=== PATIENT | male | born 1945 | race African-American/Black ===

== ENCOUNTER 2020-03-31 16:57 | Observation (INO) | payer MEDICARE, MEDICAID ==
[2020-03-31] VITALS (8 sets, daily range): BP systolic 120–143; BP diastolic 63–79
[~2020-03-31] VITALS: Ht 182.9 cm; Wt 63.5 kg
[~2020-03-31 16:57] MED LIST: AMLODIPINE BESYL5 MG PO; ASPIR 8181 MG PO; BRIMONIDINE TART5 ML BOTH EYES; COSOPT1 DRO2 RIGHT EYE; COZAAR50 MG PO; LATANOPROST2.5 ML RIGHT EYE; SYNTHROID25 MCG ORAL; ZYLET EYE DROPS5 ML OP
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
[2020-03-31] MEDS ORDERED: HYDROCHLOROTH12.5 MG ORAL (17:28)
--- NOTE | 2020-03-31 18:37 | NUR ---
Patient came into the ER for surgical prep for surgery scheduled for tomorrow.
[2020-03-31 18:45] LABS: ANION GAP 4 mmol/L (5-15); BLOOD UREA NITROGEN 14 mg/dL (7-18); CALCIUM 9.2 MG/DL (8.5-10.1); CARBON DIOXIDE 32 MMOL/L (21-32); CHLORIDE 106 MMOL/L (98-107); POTASSIUM 3.8 MMOL/L (3.5-5.1); SODIUM 142 MMOL/L (136-145)
[2020-03-31 18:49] LABS: ALANINE AMINOTRANSFERASE 34 U/L (12-78); ALBUMIN 3.6 G/DL (3.4-5.0); ALBUMIN/GLOBULIN RATIO 0.7 (1.0-2.7); ALKALINE PHOSPHATASE 99 U/L (46-116); ASPARTATE AMINO TRANSFERASE 24 U/L (15-37); BILIRUBIN,TOTAL 0.4 MG/DL (0.2-1.0)
[2020-03-31 18:56] LABS: BASOPHILS % (AUTO) 2.2 % (0.0-2.0); EOSINOPHILS % (AUTO) 3.4 % (0.0-3.0); HEMATOCRIT 44.9 % (42.0-52.0); HEMOGLOBIN 14.4 G/DL (14.2-18.0); LYMPHOCYTES % (AUTO) 37.7 % (20.0-45.0); MEAN CORPUSCULAR VOLUME 88 FL (80-99); NEUTROPHILS % (AUTO) 42.7 % (45.0-75.0); PLATELET COUNT 156 K/UL (150-450); RED BLOOD COUNT 5.12 M/UL (4.70-6.10); WHITE BLOOD COUNT 4.8 K/UL (4.8-10.8)
--- NOTE | 2020-03-31 19:14 | Pre-Procedure Note/Attestation ---
Pre-Procedure Note/Attestation Complete Prior to Procedure Planned Procedure: left - Repair of ruptured globe, left eye Procedure Narrative: Repair of ruptured globe, left eye Indications for Procedure Pre-Operative Diagnosis: Ruptured globe, left eye Attestation I attest that I discussed the nature of the procedure; its benefits; risks and complications; and alternatives (and the risks and benefits of such alternatives), prior to the procedure, with the patient (or the patient's legal procurement representative). I attest that, if there was a reasonable possibility of needing a blood transfusion, the patient (or the patient's legal procurement representative) was given the [facility] standardized written summary, pursuant to the Jose Julieta Blood Safety Act ([place] Health and Safety Code # 1645, as amended). I attest that I re-evaluated the patient just prior to the surgery and that there has been no change in the patient's H&P, except as documented below: Jakob Mayfield MD Mar 31, 2020 19:14
--- NOTE | 2020-03-31 19:35 | NUR ---
ED Nurse Note: Rcvd pt from primary nurse at shift change. Pt A&Ox3, resting comfortably on stretcher, breathing without complications on RA. Pt awaiting bed assignment to await surgery tomorrow. Will continue to monitor. Addendum: 03/31/20 at 1937 by TEVIN ED Nurse Note: Rcvd pt from primary nurse at shift change. Pt A&Ox3, resting comfortably on stretcher, breathing without complications on RA. Pt denies any pain at the current time. Pt awaiting bed assignment to await surgery tomorrow. Will continue to monitor.
[2020-03-31] MEDS ORDERED: Maxitrol Opth Oint 3.5gm ONE (19:36)
[2020-03-31] MEDS ORDERED: Lidocaine 2% MPF 5ml Vial INJ ONE (19:36)
[2020-03-31] MEDS ORDERED: prednisoLONE acetate 1% Opth Susp 1ml ONE (19:36)
[2020-03-31] MEDS ORDERED: Bupivacaine 0.75% 30ml vial INJ ONE (19:37)
[2020-03-31] MEDS ORDERED: Acetylcholine Injection (OR) ONE (19:38)
[2020-03-31] MEDS ORDERED: Tetracaine 0.5% Opth 4ml Soln ONE (19:38)
[2020-03-31] MEDS ORDERED: BSS 15ml BTL ONE (19:38)
[2020-03-31] MEDS ORDERED: Povidone-Iodine 5% opth solution ONE (19:38)
[2020-03-31] MEDS ORDERED: Sodium Hyaluronate 10 mg/ml 0.85ml ONE (19:38)
[2020-03-31] MEDS ORDERED: Ciprofloxacin Opth Soln 5ml ONE (19:39)
--- NOTE | 2020-03-31 19:44 | Anethesia Preoperative Eval ---
Anesthesia Pre-op PMH/ROS General Date of Evaluation: Mar 31, 2020 Time of Evaluation: 20:01 Anesthesiologist: Fabio ASA Score: ASA 3 - Emergency Mallampati Score Class I : Soft palate, uvula, fauces, pillars visible Class II: Soft palate, uvula, fauces visible Class III: Soft palate, base of uvula visible Class IV: Only hard plate visible Mallampati Classification: Class II Surgeon: Chaparro Diagnosis: Eye Pain OS Surgical Procedure: Repair Ruptured Globe, OS Anesthesia History: none Family History: no anesthesia problems Allergies: Coded Allergies: NITROUS OXIDE (Verified Allergy, 05/27/12) Medications: see eMAR Patient NPO?: Yes Past Medical History Cardiovascular: Reports: HTN Endocrine: Reports: hypothyroidism HEENT: Reports: cataract (L), cataract (R) Hematology/Immune: Reports: other - Prostae CA PSxH Narrative: Eye Sx Anesthesia Pre-op Phys. Exam Physician Exam Last Vital Signs Date Time Temp Pulse Resp B/P (MAP) Pulse Ox O2 Delivery O2 Flow Rate FiO2 03/31/20 19:38 98.8 73 19 143/73 96 Room Air Constitutional: NAD Neurologic: CN 2-12 intact Cardiovascular: RRR Respiratory: CTA Gastrointestinal: S/NT/ND Airway Exam Mallampati Score: Class II MO: limited ROM: limited Teeth: missing Anesthesia Pre-op A/P Labs Hematology Test 03/31/20 17:45 White Blood Count 4.8 K/UL (4.8-10.8) Red Blood Count 5.12 M/UL (4.70-6.10) Hemoglobin 14.4 G/DL (14.2-18.0) Hematocrit 44.9 % (42.0-52.0) Mean Corpuscular Volume 88 FL (80-99) Mean Corpuscular Hemoglobin 28.1 PG (27.0-31.0) Mean Corpuscular Hemoglobin Concent 32.0 G/DL (32.0-36.0) Red Cell Distribution Width 13.0 % (11.6-14.8) Platelet Count 156 K/UL (150-450) Mean Platelet Volume 10.9 FL (6.5-10.1) H Neutrophils (%) (Auto) 42.7 % (45.0-75.0) L Lymphocytes (%) (Auto) 37.7 % (20.0-45.0) Monocytes (%) (Auto) 14.0 % (1.0-10.0) H Eosinophils (%) (Auto) 3.4 % (0.0-3.0) H Basophils (%) (Auto) 2.2 % (0.0-2.0) H Coagulation Test 03/31/20 17:45 Prothrombin Time 10.7 SEC (9.30-11.50) Prothromb Time International Ratio 1.0 (0.9-1.1) Activated Partial Thromboplast Time 26 SEC (23-33) Chemistry Test 03/31/20 17:45 Sodium Level 142 MMOL/L (136-145) Potassium Level 3.8 MMOL/L (3.5-5.1) Chloride Level 106 MMOL/L (98-107) Carbon Dioxide Level 32 MMOL/L (21-32) Anion Gap 4 mmol/L (5-15) L Blood Urea Nitrogen 14 mg/dL (7-18) Creatinine 1.0 MG/DL (0.55-1.30) Estimat Glomerular Filtration Rate > 60 mL/min (>60) Glucose Level 86 MG/DL (74-106) Calcium Level 9.2 MG/DL (8.5-10.1) Total Bilirubin 0.4 MG/DL (0.2-1.0) Aspartate Amino Transf (AST/SGOT) 24 U/L (15-37) Alanine Aminotransferase (ALT/SGPT) 34 U/L (12-78) Alkaline Phosphatase 99 U/L (46-116) Troponin I 0.002 ng/mL (0.000-0.056) Total Protein 8.5 G/DL (6.4-8.2) H Albumin 3.6 G/DL (3.4-5.0) Globulin 4.9 g/dL Albumin/Globulin Ratio 0.7 (1.0-2.7) L Risk Assessment & Plan Assessment: ASA 3E Plan: GA Status Change Before Surgery: No Pre-Antibiotics Dru Grams Ancef IV Given Within 1 Hr of Incision: Yes Time Given: 20:31 Jay Mccarthy MD Mar 31, 2020 19:44
--- NOTE | 2020-03-31 19:46 | Immediate Post-Op Evaluation ---
Immediate Post-Op Evalulation Immediate Post-Op Evalulation Procedure: Repair Ruptured Globe, OS Date of Evaluation: Mar 31, 2020 Time of Evaluation: 22:22 IV Fluids: 800 LR Blood Products: 0 Estimated Blood Loss: 2 Urinary Output: 0 Blood Pressure Systolic: 124 Blood Pressure Diastolic: 69 Pulse Rate: 76 Respiratory Rate: 16 O2 Sat by Pulse Oximetry: 100 Temperature (Fahrenheit): 97.6 Pain Score (1-10): 2 Nausea: No Vomiting: No Complications 0 Patient Status: awake, reacts, patent, none Hydration Status: adequate Dru Grams Ancef IV Given Within 1 Hr of Incision: Yes Time Given: 20:31 Jay Mccarthy MD Mar 31, 2020 19:46
--- NOTE | 2020-03-31 19:47 | 48 Hour Post Anesthesia Eval ---
Post Anesthesia Evaluation Procedure: Repair Ruptured Globe, OS Date of Evaluation: Mar 31, 2020 Time of Evaluation: 00:12 Blood Pressure Systolic: 138 0: 78 Pulse Rate: 73 Respiratory Rate: 18 Temperature (Fahrenheit): 98 O2 Sat by Pulse Oximetry: 100 Airway: patent Nausea: No Vomiting: No Pain Intensity: 1 Hydration Status: adequate Cardiopulmonary Status: Stable Mental Status/LOC: patient returned to baseline Follow-up Care/Observations: 0 Post-Anesthesia Complications: 0 Follow-up care needed: N/A Jay Mccarthy MD Mar 31, 2020 19:47
[2020-03-31] MEDS ORDERED: Vigamox Opth Soln 3ml ONE (19:52)
[2020-03-31] MEDS ORDERED: Sodium Chloride 10ml vial INJ ONE (19:55)
[2020-03-31] MEDS ORDERED: Lidocaine 1% MPF 10mg/ml 5ml ONE (19:55)
[2020-03-31] MEDS ORDERED: BSS 500ml btl ONE (20:34)
[2020-03-31] MEDS ORDERED: Fluorescein Strips ONE ×2 (21:37→21:49)
--- NOTE | 2020-03-31 22:31 | Brief Operative Note ---
Immediate Post Operative Note Operative Note Pre-op Diagnosis: Ruptured globe, left eye Procedure: Repair of ruptured globe left eye Post-op Diagnosis: same as pre-op Surgeon: Estuardo Mayfield MD Anesthesiologist: Jay Mccarthy MD Anesthesia: general Specimen: none Complications: none Fluids: see chart Implant(s) used?: No Jakob Mayfield MD Mar 31, 2020 22:31
--- NOTE | 2020-03-31 23:15 | NUR ---
NURSE NOTES: Report received from Veronica Khan Rn. Patient at bedside. awake, alert x 4, talkative. Iv site noted. Skin is warm and dry to touch. No complaint of pain or discomfort. Respiration is even and unlabored, room air. all belongings at bedside, signed. Bed in low and locked position. provided safe environment. Left eye patch, dressing, intact. Observe for any s/s of bleeding/pain/infection. Dr. Friend gave admission orders. patient will follow up with Dr. Mayfield tomorrow in the AM for an appointment. And follow up appointment with Dr. Friend post surgery.
[2020-04-01] MEDS ORDERED: Acetaminophen 500mg (ES) tab ORAL PRN
[2020-04-01] MEDS ORDERED: traMADol 50mg tab ORAL PRN
[2020-04-01 04:00] VITALS: BP 150/93
[2020-04-01] MEDS ORDERED: ceFAZolin sod 1 GM in D5W 55 ML IVPB SCH (06:00)
--- NOTE | 2020-04-01 07:22 | NUR ---
NURSE HAND-OFF: Important Events on Shift: For D/c today. Patient Status: WNL Diet: Low Sodium Pending Orders: Pending Results/Labs: Pending MD notification: Latest Vital Signs: Temperature 98.1 , Pulse 67 , B/P 150 /93 , Respiratory Rate 20 , O2 SAT 96 , Nasal Cannula, O2 Flow Rate 3 . Vital Sign Comment: WNL Latest Gauthier Fall Score: 35 Fall Risk: Medium Risk Safety Measures: Call light Within Reach, Bed Alarm Zone 1, Side Rails Side Rails x2, Bed position Low and Locked. Fall Precautions: Report given to BRYAN Correa.
--- NOTE | 2020-04-01 07:40 | NUR ---
NURSE NOTES: Report received from Pamela De Guzman. Patient is awake, alert and oriented x 4, talkative. ambulates with steady gait. PIV patent and intact noted. Skin is warm and dry to touch. No complaint of pain or discomfort. Respiration is even and unlabored, room air. all belongings at bedside, signed. Bed in low and locked position. provided safe environment. Left eye patch, dressing dry,clean and intact. Anticipates discharge home. follow up with Dr. Mayfield tomorrow in the AM for an appointment and follow up appointment with Dr. Friend post surgery. will cont to monitor.
--- NOTE | 2020-04-01 07:47 | NUR ---
CASE MANAGEMENT:REVIEW 74 YR OLD MALE SENT TO ER BY CC:PRE-OP SI: RUPTURED GLOBE 98.7 77 17 165/78 98% ON RA LABS WNL IS: CHEST XRAY NPO CONSENT FOR SURGERY : TO MED/SURG PLAN: TO SURGERY FOR REPAIR OF RUPTURED GLOBE OF LT EYE 04/01/20 DISCHARGE HOME AFTER LUNCH F/U WITH DR JORGE
[2020-04-01 08:00] VITALS: BP 155/87
--- NOTE | 2020-04-01 08:22 | NUR ---
NURSE NOTES: d/c with instructions. verbalized understanding. In stable condition.
[2020-04-01 08:41] VITALS: BP 155/87
--- NOTE | 2020-04-01 08:52 | Diagnostic Imaging Report ---
Indication: Shortness of breath Technique: One view of the chest Comparison: none Findings: The lungs and pleural spaces are clear. The heart size is normal. The aorta is calcified. Impression: Negative
--- NOTE | 2020-04-01 08:54 | NUR ---
NURSE NOTES: discharge instructions given. personal belongings noted. verified home address. verbalized understanding. patient will take uber. awaiting for the transportation. removed IV heplock. consumed adequate amount of breakfast. will cont to monitor.
[2020-04-01] MEDS ORDERED: hydroCHLOROthiazide 25mg cap ORAL SCH (09:00)
[2020-04-01] MEDS ORDERED: Losartan 50mg tab ORAL SCH (09:00)
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
--- NOTE | 2020-04-06 02:01 | Cardiology Report ---
APPROVED REPORT EKG Measurement Heart [id number] <Conclusion> Sinus bradycardia Otherwise normal ECG
== END 2020-04-01 09:23 | disposition home or self-care (01) ==
LOC: EMR 17:31 → EDBEDREQSVC 18:36 → EDBEDREQ 18:50 → SUR 20:00 → 4E 22:03
DX: S05.32XA Ocular laceration without prolapse or loss of intraocular tissue, left eye, initial encounter (principal); H21.02 Hyphema, left eye; R00.1 Bradycardia, unspecified; I10 Essential (primary) hypertension; E03.9 Hypothyroidism, unspecified; Z85.46 Personal history of malignant neoplasm of prostate; W50.0XXA Accidental hit or strike by another person, initial encounter; Y92.9 Unspecified place or not applicable
CPT/HCPCS: 36415; 66825; 66999; 71045; 80053; 84484; 85025; 85610; 85730; 86850; 86900; 86901; 93005; 94003; 96365; 96374; 99285; J0690 ×2; J1100; J2250; J2405; J2704; J3370; J3490; 94150